=== PATIENT | female | born 1960 | race Caucasian/White ===

== ENCOUNTER 2019-03-21 10:36 | Observation (INO) ==
[2019-03-21] MEDS ORDERED: ASPIRIN PO ONE (10:44)
[2019-03-21] MEDS ORDERED: ASPIRIN PR ONE (10:44)
[2019-03-21 11:15] LABS: BASO# 0.05 X1000 (0.0-0.2); BASO% 0.8 % (0.0-0.8); EOS% 3.2 % (0.0-10.0); HEMATOCRIT 42.2 % (37.0-47.0); HEMOGLOBIN 12.7 g/dL (12.0-16.0); IMM GRAN# 0.03 X1000 (0.0-0.04); IMM GRAN% 0.5 % (0.0-0.5); LYMPH# 1.41 X1000 (1.2-3.4); LYMPH% 22.6 % (20.5-51.1); MCHC 30.1 g/dL (33-37); MCV 96.3 FL (81-99); MONO# 0.43 X1000 (0.11-0.59); MONO% 6.9 % (1.7-9.3); MPV 9.3 FL (7.4-10.4); NEUT# 4.11 X1000 (1.4-6.5); PLT 253 X1000 (130-400); RBC 4.38 XMIL (4.2-5.4); RDW 14.7 % (11.5-14.5); WBC 6.23 X1000 (4.8-10.8)
[2019-03-21 11:22] LABS: I-STAT BE 1 mmoll (-2-3); I-STAT GLUCOSE 124 mg/dL (70-105); I-STAT HEMOGLOBIN 13.6 g/dL (11.5-17.5); I-STAT K 3.8 mmoll (3.5-4.9); I-STAT SODIUM 142 mmoll (138-146); I-STAT TCO2 28 mmoll (23-27); I-STAT pH 7.341 (7.350-7.450)
[2019-03-21 11:31] LABS: INR 0.94
[2019-03-21 11:32] LABS: PTT 42.8 Seconds (22.3-41.8)
--- NOTE | 2019-03-21 11:32 | Diag Imaging Result Doc PS360 ---
EXAM: CHEST-2 VIEWS 03/21/2019 HISTORY: sob TECHNIQUE: PA and lateral chest COMMENT: There is no evidence of acute cardiac or pulmonary disease. The lungs are not as well-expanded as on 12/25/2010, otherwise there has been no significant change. IMPRESSION: Stable chest. Electronically signed by Telly Valencia 03/21/2019 11:29 AM
[2019-03-21 11:37] LABS: ALBUMIN 4.2 g/dL (3.5-5.0); CALCIUM 8.7 mg/dL (8.8-10.2); CREATININE 1.2 mg/dL (0.5-0.9); POTASSIUM 3.9 mmol/L (3.5-5.1); TOTAL BILIRUBIN 0.2 mg/dL (0.20-1.00); TOTAL PROTEIN 7.6 g/dL (6.3-8.3)
[2019-03-21 12:16] LABS: CK INDEX 2.3 (0.0-2.5); CK-MB 7.46 ng/mL (0.0-5.0)
[2019-03-21] MEDS ORDERED: ROCEPHIN 1 GM in NS 50 ML IV ONE (12:23)
[2019-03-21] MEDS ORDERED: SOLU-MEDROL IV ONE (12:23)
[2019-03-21] MEDS ORDERED: DUONEB (A & A) INH ONE (12:23)
--- NOTE | 2019-03-21 12:24 | EKG Report ---
Test Performed on : 03/21/2019 11:00:00 AM Test Reason : sob Blood Pressure : / mmHG Vent. Rate : 093 BPM Atrial Rate : 079 BPM P-R Int : 134 ms QRS Dur : 076 ms QT Int : 442 ms P-R-T Axes : 058 -47 188 degrees QTc Int : 549 ms Undetermined rhythm Left anterior fascicular block Nonspecific T wave abnormality Prolonged QT Abnormal ECG No previous ECGs available Unconfirmed Result
--- NOTE | 2019-03-21 13:13 | Diag Imaging Result Doc PS360 ---
EXAM: CT ANGIOGRM PULMONARY ARTERIES INDICATION: shortness of breath, elevated dimer TECHNIQUE: This exam was performed using automated exposure control, adjustment of mA or kV according to patient size, and/or use of iterative reconstruction technique. Thin section axial images and 3-D MIPS were obtained. COMPARISON: None. FINDINGS: There is no evidence of pulmonary embolism. There is patchy mild aortic atherosclerotic disease. There is no evidence of aortic aneurysm or dissection. There are calcified mediastinal and hilar lymph nodes indicating prior granulomatous disease. There are a few other borderline prominent nonspecific mediastinal lymph nodes. There are mild emphysematous changes at the lung apices. There are a few calcified granulomata in the right lower lobe. There are a few small groundglass opacities in the right middle lobe at the base, the anterior segment of the right upper lobe, and the right upper lobe near the apex that probably represent small foci of pneumonitis. There is mild focal scarring in the lingula. There is no pleural fluid collection and no pneumothorax. Limited views of the upper abdomen reveals low dense thickening of the adrenal glands likely representing hyperplasia or underlying adenomas. The upper abdomen is essentially unremarkable, otherwise. IMPRESSION: 1.Mild emphysema. 2.A few patches of groundglass opacity in the right upper lobe and right middle lobe suggesting nonspecific pneumonitis. 3.No evidence of pulmonary embolism. 4.Other incidental/nonacute findings detailed above. Electronically signed by Quinton Bunn 03/21/2019 1:10 PM
--- NOTE | 2019-03-21 14:34 | PROVIDER DOCUMENTATION ---
This chart was entered by Koki Hartley Scribe, acting as scribe for Nelda Reza MD. HPI-Respiratory General - General Chief Complaint: Shortness of Breath Stated Complaint: ABD NORMAL LABS Time Seen by Provider: 03/21/19 10:42 Source: patient Allergies/Adverse Reactions: Patient Allergies Allergy/AdvReac Type Severity Reaction Status Date / Time No Known Allergies Allergy Verified 03/21/19 11:18 Home Medications: Home Medication List Medication Instructions Recorded Confirmed Last Taken Type Albuterol Sulfate 1 vial IN TID PRN 03/21/19 03/21/19 Unknown History Amlodipine Besylate [Norvasc] 10 mg PO DAILY 03/21/19 03/21/19 Unknown History Citalopram Hydrobromide [Celexa] 40 mg PO DAILY 03/21/19 03/21/19 Unknown History Oxycodone HCl/Acetaminophen 1 tab PO TID PRN 03/21/19 03/21/19 Unknown History [Oxycodone-Acetaminophen 10-325] Pantoprazole Sodium 40 mg PO DAILY 03/21/19 03/21/19 Unknown History - History of Present Illness-Resp Nature of Presenting Problem: Pt is a 58 yowf with c/o of SOB that started 2 weeks ago. Pt stated that she can not lay down and breath. Pt states that she just started using oxygen at home at 2L daily. Pt is alert and nontoxic in appearance. Quality of Pain: reports: none Severity in ED: reports: mild Onset/Duration: reports: other (SOB started 2 weeks ago) Timing: reports: still present, getting worse Cough Quality/Degree: reports: no cough Current Respiratory Medication Therapy: Initiated see nurses note Modifying Factors: improves with: sitting upright. worse with: lying down Associated Symptoms: reports: shortness of breath Similar Symptoms Previously?: Yes Recently seen or treated by another doctor?: Yes (PCP) Review of Systems - Adult - REVIEW OF SYSTEMS - ADULT Constitutional: reports: no symptoms reported Eyes: reports: no symptoms reported Ears, Nose, Mouth & Throat: reports: no symptoms reported Cardiovascular: reports: no symptoms reported Respiratory: reports: dyspnea on exertion, shortness of breath Gastrointestinal: reports: no symptoms reported Genitourinary: reports: no symptoms reported Musculoskeletal: reports: no symptoms reported Integumentary: reports: no symptoms reported Neurological: reports: see HPI. denies: syncope Psychiatric: reports: no symptoms reported Endocrine: reports: no symptoms reported Hematologic/Lymphatic: reports: no symptoms reported Allergic/Immunologic: reports: no symptoms reported All Other Systems: Reviewed and Negative Past History - Adult - PAST MEDICAL HISTORY-ADULT Review of Records: reports: Old Records Reviewed, Nursing Assessment Review, Medications Reviewed, Social history reviewed & non-contributory. Major Childhood Illnesses: reports: denies history Cardiovascular: reports: HTN Respiratory: reports: COPD Gastrointestinal: reports: denies history Genitourinary: reports: denies history Musculoskeletal: reports: chronic pain, fibromyalgia Neurological: reports: denies history Psychiatric: reports: depression Endocrine/Immune: reports: denies history Other Conditions: reports: denies history - PRIOR SURGERIES/PROCEDURES Surgical/Procedure History: reports: cholecystectomy, BTL - IMMUNIZATION STATUS Childhood Immunizations: See Nurse Assessment Flu Vaccine: See Nurse Assessment - FAMILY HISTORY Family History: reviewed, not pertinent - SOCIAL HISTORY Smoking: cigarettes, greater than 1 pack/day Provider spent 3-5 mins advising pt. on dangers of tobacco.: Discussed manners to quit use, and f/u contacts for add'l counseling. Substance Use: denies Living Situation: family Physical Exam-General - PHYSICAL EXAM-ADULT Initial Vital Signs Reviewed: Yes (Temp 97.4, Resp 28, O2 83 RA) - CONSTITUTIONAL General Appearance: appears well, alert - EYES Eyes: PERRL/EOMI - HEAD, EARS, NOSE, MOUTH & THROAT HENMT: moist mucous membranes - NECK Neck: full range of motion - RESPIRATORY Respiratory: prolonged expiration, other (distant breath sounds. poor air movement). negative: rales, wheezing - CARDIOVASCULAR Cardiovascular: JVD - GASTROINTESTINAL (ABDOMEN) Abdominal Exam: non tender, soft - MUSCULOSKELETAL Back Exam: no CVA tenderness, no vertebral tenderness Extremity: non-tender, normal gait, pedal edema - SKIN Integumentary: normal color, normal turgor, warm/dry - NEUROLOGIC Neurologic: grossly normal, no motor/sensory deficits - PSYCHIATRIC Psych/Mental Status: normal mood/affect, normal thought content, normal thought process, oriented x 3 Progress - PLAN OF CARE/RESULTS Progress/Plan/Lab Results: Vital Signs - 8 hr 03/21/19 10:40 03/21/19 11:30 03/21/19 12:15 Temperature 97.4 F L Pulse Rate 87 79 81 Respiratory Rate 28 H 20 28 H Blood Pressure 165/91 129/78 146/81 O2 Sat by Pulse Oximetry 83 L 89 L 88 L 03/21/19 12:49 03/21/19 13:18 03/21/19 13:39 Temperature Pulse Rate 81 80 Respiratory Rate 24 18 Blood Pressure 146/81 O2 Sat by Pulse Oximetry 90 L 92 L 88 L Laboratory Results - last 24 hr 03/21/19 03/21/19 03/21/19 11:00 11:00 11:00 WBC 6.23 RBC 4.38 Hgb 12.7 Hct 42.2 MCV 96.3 MCH 29.0 MCHC 30.1 L RDW Std Deviation 14.7 H Plt Count 253 MPV 9.3 Immature Gran % (Auto) 0.5 Neut % (Auto) 66.0 Lymph % (Auto) 22.6 [place] % (Auto) 6.9 Eos % (Auto) 3.2 Baso % (Auto) 0.8 Immature Gran # (Auto) 0.03 Neut # (Auto) 4.11 Lymph # (Auto) 1.41 [place] # (Auto) 0.43 Eos # (Auto) 0.20 Baso # (Auto) 0.05 PT INR PTT (Actin FS) D-Dimer, Quantitative 0.89 H POC Blood Site POC pH POC pCO2 POC pO2 POC HCO3 POC Total CO2 POC Base Excess POC O2 Saturation POC Hemoglobin POC Hematocrit POC Sodium POC Potassium POC Glucose POC Ioniz Calcium O2 Delivery Device POC O2 Flow Rate POC FiO2 Sodium 145 Potassium 3.9 Chloride 103 Carbon Dioxide 26 Anion Gap 16 BUN 16 Creatinine 1.2 H Estimated GFR/1.73 m2 46 BUN/Creatinine Ratio 13 Glucose 107 H Calculated Osmolality 290 Calcium 8.7 L Total Bilirubin 0.20 AST 19 ALT 11 Alkaline Phosphatase 151 H Creatine Kinase 330 H Creatine Kinase Index 2.3 CK-MB (CK-2) 7.46 H Troponin T High Sens Unl-J-Qwibdlpjrsw Pept Total Protein 7.6 Albumin 4.2 Globulin 3.0 Albumin/Globulin Ratio 1.0 03/21/19 03/21/19 03/21/19 11:00 11:00 11:00 WBC RBC Hgb Hct MCV MCH MCHC RDW Std Deviation Plt Count MPV Immature Gran % (Auto) Neut % (Auto) Lymph % (Auto) [place] % (Auto) Eos % (Auto) Baso % (Auto) Immature Gran # (Auto) Neut # (Auto) Lymph # (Auto) [place] # (Auto) Eos # (Auto) Baso # (Auto) PT 13.0 INR 0.94 PTT (Actin FS) 42.8 H D-Dimer, Quantitative POC Blood Site POC pH POC pCO2 POC pO2 POC HCO3 POC Total CO2 POC Base Excess POC O2 Saturation POC Hemoglobin POC Hematocrit POC Sodium POC Potassium POC Glucose POC Ioniz Calcium O2 Delivery Device POC O2 Flow Rate POC FiO2 Sodium Potassium Chloride Carbon Dioxide Anion Gap BUN Creatinine Estimated GFR/1.73 m2 BUN/Creatinine Ratio Glucose Calculated Osmolality Calcium Total Bilirubin AST ALT Alkaline Phosphatase Creatine Kinase Creatine Kinase Index CK-MB (CK-2) Troponin T High Sens 11 Ysy-J-Syrtnwjoeeo Pept 227 H Total Protein Albumin Globulin Albumin/Globulin Ratio 03/21/19 03/21/19 11:10 11:17 WBC RBC Hgb Hct MCV MCH MCHC RDW Std Deviation Plt Count MPV Immature Gran % (Auto) Neut % (Auto) Lymph % (Auto) [place] % (Auto) Eos % (Auto) Baso % (Auto) Immature Gran # (Auto) Neut # (Auto) Lymph # (Auto) [place] # (Auto) Eos # (Auto) Baso # (Auto) PT INR PTT (Actin FS) D-Dimer, Quantitative POC Blood Site R RADIAL POC pH 7.341 L POC pCO2 49.5 H POC pO2 52.0 L POC HCO3 26.8 H POC Total CO2 28 H POC Base Excess 1 POC O2 Saturation 84 L POC Hemoglobin 13.6 POC Hematocrit 40 POC Sodium 142 POC Potassium 3.8 POC Glucose 124 H POC Ioniz Calcium 1.16 O2 Delivery Device CANNULA POC O2 Flow Rate 2.00 POC FiO2 28.0 Sodium Potassium Chloride Carbon Dioxide Anion Gap BUN Creatinine Estimated GFR/1.73 m2 BUN/Creatinine Ratio Glucose Calculated Osmolality Calcium Total Bilirubin AST ALT Alkaline Phosphatase Creatine Kinase Creatine Kinase Index CK-MB (CK-2) Troponin T High Sens Egd-J-Vphlmprzujr Pept 219 Total Protein Albumin Globulin Albumin/Globulin Ratio Orders Category Date Time Status Cardiac Monitoring DIRECTED Care 03/21/19 10:44 Active Oxygen Therapy- ED Nursing DIRECTED Care 03/21/19 10:44 Active Saline Loc NOW Care 03/21/19 10:44 Active CHEST-2 VIEWS [RAD] Stat Exams 03/21/19 10:44 Completed CTA [CT ANGIOGRM PULMONARY ARTERIES] [CT] Stat Exams 03/21/19 12:35 Completed BLOOD CULTURE [BLDCUL] Stat Lab 03/21/19 12:37 Ordered BNP [PRO B-NATRIURETIC PEPTIDE] Stat Lab 03/21/19 11:10 Completed CBC WITH ELECTRONIC DIFF [HEME] Stat Lab 03/21/19 11:00 Completed CK PROFILE [SP CHEM] Stat Lab 03/21/19 11:00 Completed COMPREHENSIVE METABOLIC PANEL [CHEM] Stat Lab 03/21/19 11:00 Completed D-DIMER [COAG] Stat Lab 03/21/19 11:00 Completed I-STAT 8 [RESP] Routine Lab 03/21/19 11:17 Completed PRO B-NATRIURETIC PEPTIDE Stat Lab 03/21/19 11:00 Completed PROTIME WITH INR [COAG] Stat Lab 03/21/19 11:00 Completed PTT [COAG] Stat Lab 03/21/19 11:00 Completed TROPONIN T HIGH SENSITIVITY Stat Lab 03/21/19 11:00 Completed Albuterol 2.5MG/Ipratrop 0.5MG [Duoneb (A & A)] Med 03/21/19 12:23 Discontinued 3 ml INH NOW ONE Aspirin Med 03/21/19 10:44 Discontinued 300 mg VT NOW ONE Aspirin Med 03/21/19 10:44 Discontinued 325 mg PO NOW ONE CefTRIAXONE [Rocephin] 1 gm Med 03/21/19 12:23 Discontinued 0.9% Sodium Chloride Inj [Ns] 50 ml IV NOW Methylprednisolone Sod Succ [Solu-Medrol] Med 03/21/19 12:23 Discontinued 125 mg IV NOW ONE Aerosol Treatments Routine Oth 03/21/19 12:24 Active Aerosol Treatments Stat Oth 03/21/19 12:24 Active CP/SOB/Palp >45 yrs of Age Stat Oth 03/21/19 10:44 Ordered EKG [EKG] Stat Ther 03/21/19 10:44 Draft Result Diagrams: 03/21/19 11:00 03/21/19 11:00 - REASSESSMENT Reassessment #1 Time Reassessed: 14:07 Status: unchanged Reassessment Comment: at bedside discussing admittance - EKG 1 Time of EKG reading by physician:: 11:06 EKG Read and Signed by:: Nelda Reza EKG Interpretation (*Must complete 3 of following elements*): Abnormal Rate: 93 (left anterior fascicular block) Rhythm: Undetermined rhythm Comments: Nonspecific T wave abnormality, Prolonged QT, abnomal ECG - XRAY 1 XRAY Study: Chest Impression: See EMR Report (EXAM: CHEST-2 VIEWS 03/21/2019 HISTORY: sob TECHNIQUE: PA and lateral chest COMMENT: There is no evidence of acute cardiac or pulmonary disease. The lungs are not as well-expanded as on 12/25/2010, otherwise there has been no significant change. IMPRESSION: Stable chest. Electronically signed by Telly Valencia 03/21/2019 11:29 AM 03/21/19 1129 Interpreting Physician: Telly Valencia MD Dictated Date/Time: 03/21/19 112 cc: Nelda Reza MD; Jerry Martinez MD) - CT/MRI 1 CT Study: other (pulmonary anteriogram) Impression: See EMR Report (EXAM: CT ANGIOGRM PULMONARY ARTERIES INDICATION: shortness of breath, elevated dimer TECHNIQUE: This exam was performed using automated exposure control, adjustment of mA or kV according to patient size, a nd/or use of iterative reconstruction technique. Thin section axial images and 3-D MIPS were obtained. COMPARISON: None. FINDINGS: There is no evidence of pulmonary embolism. There is patchy mild aortic atherosclerotic disease. There is no evidence of aortic aneurysm or dissection. There are calcified mediastinal and hilar lymph nodes indicating prior granulomatous disease. There are a few other borderline prominent nonspecific mediastinal lymph nodes. There are mild emphysematous changes at the lung apices. There are a few calcified granulomata in the right lower lobe. There are a few small groundglass opacities in the right middle lobe at the base, the anterior segment of the right upper lobe, and the right upper lobe near the apex that probably represent small foci of pneumonitis. There is mild focal scarring in the lingula. There is no pleural fluid collection and no pneumothorax. Limited views of the upper abdomen reveals low dense thickening of the adrenal glands likely representing hyperplasia or underlying adenomas. The upper abdomen is essentially unremarkable, otherwise. IMPRESSION: 1.Mild emphysema. 2.A few patches of groundglass opacity in the right upper lobe and right middle lobe suggesting nonspecific pneumonitis. 3.No evidence of pulmonary embolism. 4.Other incidental/nonacute findings detailed above. Electronically signed by Quinton Bunn 03/21/2019 1:10 PM 03/21/19 1310 Interpreting Physician: Quinton Bunn MD Dictated Date/Time: 03/21/19 1 258 cc: Nelda Reza MD; Jerry Martinez MD) - CONSULTS/PCP/HOSPITALIST Notification #1 *Consult/PCP/Hospitalist*: dr Martinez Time Discussed: 14:30 Consult Disposition: Admit Departure - Departure Date of Disposition Decision: 03/21/19 Time of Disposition Decision: 14:08 DIAGNOSIS: Pneumonitis COPD (chronic obstructive pulmonary disease) Qualifiers: COPD type: COPD with acute exacerbation Qualified Code(s): J44.1 - Chronic obstructive pulmonary disease with (acute) exacerbation Disposition: ADMITTED INPATIENT 09 Certified Medical Emergency: Emergent Condition: Good Referrals and Follow-Ups: Jerry Martinez MD [Primary Care Provider] - - Critical Care Note This patient required my direct & personal management of CC.: No Attestation - Physician/ RAUL Attestation Patient care was provided by Advanced Practice Provider:: No The physician spent face to face time with patient:: Yes Advanced Practice Provider documentation review:: Supervising physician onsite and consulted in the evaluation and care of this patient. The physician did have a face to face encounter with the patient. This chart was documented by the indicated scribe, (Koki Hartley, Christopher) and accurately reflects the services I performed and decisions made by me, Nelda Reza MD, as attested by the provider's signature.
[2019-03-21] MEDS ORDERED: DUONEB (A & A) INH PRN (15:29)
[2019-03-21] MEDS ORDERED: ZOFRAN IV PRN (15:30)
[2019-03-21] MEDS ORDERED: TYLENOL PO PRN (15:30)
[2019-03-21] MEDS ORDERED: LASIX IV ONE (15:52)
[2019-03-21] MEDS ORDERED: LASIX ONE (15:59)
[2019-03-21] MEDS ORDERED: LOVENOX SUBQ SCH (16:00)
[2019-03-21] MEDS: PERCOCET-10 PO PRN (16:03)
[2019-03-21] MEDS: DUONEB (A & A) INH SCH ×3 (16:10→23:59)
[2019-03-21] MEDS: SOLU-MEDROL IV SCH (18:07)
--- NOTE | 2019-03-21 18:41 | HISTORY AND PHYSICAL ---
ADDENDUM: Patient seen and examined by myself. Full note dictated and discussed with nurse practitioner. Patient presented to the hospital with increased shortness of breath and coughing. CT demonstrated pneumonitis. We are going to admit her to the hospital, place her on oxygen, nebulized treatment. cc: Jerry Martinez MD
--- NOTE | 2019-03-21 19:00 | HISTORY AND PHYSICAL ---
PRIMARY CARE PHYSICIAN: Dr. Jerry Martinez. CHIEF COMPLAINT: Shortness of breath, lower extremity edema, and generalized weakness. HISTORY OF PRESENT ILLNESS: This is a 58-year-old female with a history of COPD, hypertension, chronic pain on chronic narcotics, and fibromyalgia, who presents to the emergency room complaining of shortness of breath, productive cough, and increasing lower extremity edema. She states that in December she was out in the yard picking up pecans that were buried in some wet, moldy leaves. She stated the pecans had holes on many of them, and that they were molded. She states that about 2-3 days later she started to have some shortness of breath that increased over about 2 weeks. About that time she developed a productive cough. She states sputum has been yellow, green and foamy clear intermittently over the last 6-7 weeks. About 2 weeks ago she started having increasing lower extremity edema that did not resolve as usual during the night after elevating her feet, along with increasing shortness of breath, and over the last week, she has had orthopnea that has become 90-degree orthopnea over the last 2 days. She does use oxygen at 2 L at home at night. She did not use it during the day prior to coming to the emergency room. Because symptoms increased, she went to her primary care physician. She was found to have an 02 saturation of 83% and sent to the emergency room. On arrival to the emergency room, she had a saturation of 83% on room air. Reportedly, her nail beds were dusky to cyanotic, per respiratory therapy, on her arrival. PAST MEDICAL HISTORY: 1. COPD. 2. Hypertension. 3. Chronic pain, on chronic opiates. 4. Fibromyalgia. 5. Depression. PAST SURGICAL HISTORY: Cholecystectomy, tubal ligation. SOCIAL HISTORY: She smokes a pack to a pack and a half of cigarettes a day. She denies alcohol or illicit drug use. She is . ALLERGIES: No known drug allergies. HOME MEDICATIONS: A list will be obtained by the nursing staff, and once verified, will be restarted as appropriate. REVIEW OF SYSTEMS: Discussed with the patient, with pertinent positives as stated in the HPI. She denied any syncope or dizziness, any chest pain or palpitations, any night sweats, any nausea, vomiting, diarrhea, constipation, black or bloody vomitus or stools, any hematuria, dysuria, frequency or urgency. PHYSICAL EXAMINATION: GENERAL: This is a 58-year-old female who is standing up at the bedside, in no distress. VITAL SIGNS: Blood pressure is 148/65, heart rate 85, respirations 20, temperature 97.8 oral, with 02 saturations ranging from 92% to 95% on 3 L nasal cannula. EYES: Pupils equal, round, and reactive to light. Extraocular movements are intact. Sclerae are anicteric. HEENT: Head is normocephalic, atraumatic. Mucous membranes are moist. NECK: Supple. Trachea is midline. CARDIOVASCULAR: Regular rate and rhythm. S1 and S2 appreciated. She does have bilateral lower extremity edema that is from about just above her knees down. It is pitting. Calves are nontender with peripheral pulse palpable x4 extremities . PULMONARY: Breath sounds are distant throughout with expiratory wheezes and crackles. Chest rises and falls symmetrically with respiration. Chest wall is nontender to palpation. GASTROINTESTINAL: Abdomen is soft, nontender, nondistended with bowel sounds in all 4 quadrants. NEUROLOGIC: She is alert and oriented x3. SKIN: Warm and dry. LABORATORY DATA: WBCs 6.2, hemoglobin 12.7, hematocrit 42.2 and platelets 253. Sodium is 145, potassium 3.9, BUN 16, creatinine 1.2 with a glucose of 107. CK is 330 with CK-MB 7.46 and troponin-T of 11. ProBNP is 219. ABGs: pH of 7.34, pCO2 of 49, pO2 of 52, and bicarb of 26.8. This is on 2 L nasal cannula. INR is 0.94 with a PTT of 42.8 and a D-dimer of 0.89. Pulmonary arteriogram revealed mild emphysema, a few patches of ground-glass opacity in the right upper lobe and the right middle lobe suggesting nonspecific pneumonitis, no evidence of pulmonary embolism. ASSESSMENT: 1. Chronic obstructive pulmonary disease acute exacerbation. 2. Acute hypoxemic, hypercapnic respiratory failure. 3. Obstructive sleep apnea with home O2 at 2 liters for nighttime use. 4. Pneumonitis/bronchitis. 5. Elevated D-dimer with a CT angiogram/pulmonary negative for pulmonary embolus. 6. Chronic kidney disease with a baseline creatinine of 1.2. 7. Elevated CPK and CK-MB in a patient who complains of increasing weakness to extremities with upper greater than lower. 8. Hypertension. PLAN: 1. The patient will be admitted to the medical/surgical floor. She will be placed on telemetry. She will continue supplemental oxygen with close monitoring, with strict inputs and outputs with daily weights. Will start incentive spirometry and give her DuoNeb treatments every 4 hours or every 2 hours as needed, and steroids. Will attempt to get a sputum culture. Blood cultures are pending. Will check a CBC, a BMP and a total CK in the morning, and a PA and lateral chest in the morning. Will identify her home medications and continue these as appropriate. 2. Lasix 40 mg once a day. 3. Will obtain a CRP, a sedimentation rate, an LDH and a TSH in the setting of elevated CPK and CK- MB and complaints of recent generalized weakness, especially in her upper extremities. 4. Will get a bilateral lower extremity Doppler and an echocardiogram in the morning. 5. Further treatment pending hospital course. The patient was examined, and plan was discussed with Dr. Martinez. Dictated by RAVEN Purdy for Jerry Martinez MD cc: RAVEN Purdy MD
[2019-03-22] MEDS ORDERED: APRESOLINE IV PRN (00:24)
[2019-03-22] MEDS: PERCOCET-10 PO PRN ×3 (00:40→19:16)
[2019-03-22] MEDS: SOLU-MEDROL IV SCH ×4 (00:46→19:16)
[2019-03-22] MEDS: DUONEB (A & A) INH SCH ×6 (03:55→23:06)
[2019-03-22 06:13] LABS: EOS# 0.01 X1000 (0.0-0.7); EOS% 0.2 % (0.0-10.0); HEMATOCRIT 41.3 % (37.0-47.0); HEMOGLOBIN 12.4 g/dL (12.0-16.0); IMM GRAN# 0.08 X1000 (0.0-0.04); IMM GRAN% 1.6 % (0.0-0.5); LYMPH% 9.8 % (20.5-51.1); MCH 28.8 PG (27-31); MCV 95.8 FL (81-99); MONO# 0.04 X1000 (0.11-0.59); MONO% 0.8 % (1.7-9.3); MPV 9.3 FL (7.4-10.4); NEUT# 4.45 X1000 (1.4-6.5); NEUT% 87.6 % (42.2-75.2); PLT 284 X1000 (130-400); RBC 4.31 XMIL (4.2-5.4); RDW 14.4 % (11.5-14.5); WBC 5.08 X1000 (4.8-10.8)
[2019-03-22 06:24] LABS: CALCIUM 9.3 mg/dL (8.8-10.2); POTASSIUM 4.1 mmol/L (3.5-5.1)
--- NOTE | 2019-03-22 07:12 | Vascular Study Report ---
EXAM: Venous U/S Bilateral Legs - 03/21/2019 HISTORY: elevated d-dimer, dyspnea TECHNIQUE: Bilateral lower extremity Doppler venous ultrasound COMPARISON: 08/18/2018 FINDINGS: The deep veins of the bilateral lower extremities demonstrate flow, with compressibility and augmentation. There are no filling defects identified. IMPRESSION: No evidence of deep venous thrombosis in either lower extremity. Electronically signed by Gio Peres 03/22/2019 7:09 AM
[2019-03-22 07:42] LABS: LYMPHS 8 % (21-51); MONO 2 % (1-9); SEGS 90 % (42-75)
--- NOTE | 2019-03-22 07:51 | Diag Imaging Result Doc PS360 ---
EXAM: CHEST-2 VIEWS - 03/22/2019 HISTORY: hypoxemia TECHNIQUE: Chest two views COMPARISON: 03/21/2019 FINDINGS: Heart size appears within normal limits. There are apparent mild COPD changes. There is stable right lower lung granuloma from old granulomatous disease. There is no consolidation, pleural effusion, or pneumothorax identified. There are thoracic spondylosis and exaggerated kyphosis noted similar to prior. IMPRESSION: Apparent mild COPD changes. No discrete pneumonia. Electronically signed by Gio Peres 03/22/2019 7:48 AM
[2019-03-22] MEDS: CELEXA PO SCH (09:42)
[2019-03-22] MEDS: NORVASC PO SCH (09:42)
[2019-03-22] MEDS: PROTONIX PO SCH (09:42)
--- NOTE | 2019-03-22 18:47 | ECHO REPORT ---
ORDER DATE: 03/22/2019 INDICATION: Dyspnea, hypoxemia. M-MODE MEASUREMENTS: Left ventricle end diastole: 5.3. Left ventricle end systole: 3.2. Posterior wall: 1.0. Interventricular septum: 1.9. Left atrium: 3.6. Aortic diameter: 3.2. SUMMARY OF 2-DIMENSIONAL IMAGIN. Left ventricular function is normal. Ejection fraction is 75%. There is no wall motion abnormality. 2. The aortic valve looks normal. Color flow mapping unremarkable. 3. The pulmonic valve looks normal. Color flow mapping unremarkable. 4. The tricuspid valve shows a mild degree of regurgitation. The inferior vena cava is not dilated. Pulmonary pressure is estimated at 32 mmHg. 5. The mitral valve looks normal. Color flow mapping unremarkable. 6. Pulse wave Doppler of mitral inflow shows reversal of the E/A ratio. The ratio if 0.7. 7. Tissue Doppler of septal and lateral mitral annulus averages 8 cm. There is no diastolic dysfunction. 8. Pulmonary venous flow is normal. 9. The right atrium is not dilated. The left atrium appears to be mildly enlarged. 10.The right ventricle is normal. 11.There is no pericardial effusion, no mass, and no thrombus. 12.The aortic valve opens normally. Color flow mapping unremarkable. Clinical correlation recommended. cc: MD Hilda White CRNP MTDD
--- NOTE | 2019-03-23 00:34 | PROGRESS NOTE ---
DATE: 03/22/2019 SUBJECTIVE: Patient notes that she is feeling okay, breathing okay, breathing a little bit better. Notes that her upper extremity weakness also is better. PHYSICAL EXAMINATION: Temperature 98 degrees, pulse 76, respiratory rate 18, BP 181/76. General: Patient is awake, alert. She is in minimal respiratory distress. HEENT: Normocephalic. Neck: Supple. Cardiovascular: Regular rhythm and rate. Chest: Clear. Abdomen: Soft. Extremities: Moves all extremities. Neurologic: No changes. ASSESSMENT: 1. Chronic obstructive pulmonary disease with exacerbation. 2. Acute hypoxic respiratory failure. 3. Acute hypercapnic respiratory failure. 4. Obstructive sleep apnea with home oxygen. 5. Elevated D-dimer. 6. Elevated sedimentation rate. 7. Elevated CPK. PLAN: We will continue patient in the hospital. Continue to follow. Continue Lasix and breathing treatments, oxygen. Hopefully, she will improve and can be discharged home soon. cc: Jerry Martinez MD
[2019-03-23] MEDS: SOLU-MEDROL IV SCH ×2 (01:45→06:36)
[2019-03-23] MEDS: DUONEB (A & A) INH SCH ×3 (03:19→11:11)
[2019-03-23 06:37] LABS: BASO# 0.01 X1000 (0.0-0.2); BASO% 0.1 % (0.0-0.8); HEMATOCRIT 38.3 % (37.0-47.0); HEMOGLOBIN 11.4 g/dL (12.0-16.0); IMM GRAN# 0.07 X1000 (0.0-0.04); IMM GRAN% 0.9 % (0.0-0.5); LYMPH# 0.67 X1000 (1.2-3.4); LYMPH% 8.4 % (20.5-51.1); MCH 28.3 PG (27-31); MCHC 29.8 g/dL (33-37); MONO# 0.18 X1000 (0.11-0.59); MONO% 2.2 % (1.7-9.3); MPV 9.3 FL (7.4-10.4); NEUT# 7.08 X1000 (1.4-6.5); NEUT% 88.4 % (42.2-75.2); PLT 288 X1000 (130-400); RBC 4.03 XMIL (4.2-5.4); RDW 14.5 % (11.5-14.5); WBC 8.01 X1000 (4.8-10.8)
[2019-03-23 07:03] LABS: BANDS 2 % (0-1); LYMPHS 10 % (21-51); MONO 2 % (1-9); SEGS 86 % (42-75)
[2019-03-23 07:04] LABS: HYPOCHROM OCCASIONAL; POLYCHROM OCCASIONAL
[2019-03-23 07:39] VITALS: BP 161/82
[2019-03-23] MEDS ORDERED: DIFLUCAN PO SCH (09:00)
[2019-03-23] MEDS ORDERED: PRINIVIL PO SCH (09:00)
[2019-03-23] MEDS: CELEXA PO SCH (09:20)
[2019-03-23] MEDS: PROTONIX PO SCH (09:20)
[2019-03-23] MEDS: NORVASC PO SCH (09:20)
[2019-03-23] MEDS: PERCOCET-10 PO PRN (09:26)
[2019-03-23] MEDS ORDERED: SOLU-MEDROL IV SCH (14:30)
--- NOTE | 2019-03-24 04:58 | DISCHARGE SUMMARY ---
ADMISSION DATE: 03/21/2019 DISCHARGE DATE: 03/23/2019 Patient seen and examined by myself. Full note dictated and discussed with nurse practitioner. Patient presented to the hospital with shortness of breath. Was noted to have a mild COPD exacerbation. Sedimentation rate was elevated. Was placed on steroids. She had a great improvement. On discharge, she is awake, alert. She is in no distress and is asking to go home. cc: Jerry Martinez MD
--- NOTE | 2019-03-24 18:40 | DISCHARGE SUMMARY ---
ADMISSION DATE: 03/21/2019 DISCHARGE DATE: 03/23/2019 DIAGNOSES: 1. Chronic obstructive pulmonary disease acute exacerbation. Resolved. 2. Acute hypoxemic hypercapnic respiratory failure. Resolved. 3. Obstructive sleep apnea with home oxygen at 2 liters. 4. Elevated D-dimer with a negative bilateral venous Doppler and negative CTA pulmonary. 5. Elevated sedimentation and elevated CPK. DIAGNOSTICS: 1. Chest x-ray revealed no evidence of acute cardiac or pulmonary disease. Lungs were not as well expanded as on December 2010. Otherwise, there is no significant change. 2. Bilateral lower extremity Doppler reveals no evidence of deep vein thrombosis in either extremity. 3. CTA pulmonary, mild emphysema, a few patches of ground-glass opacity in the right upper lobe and right middle lobe suggesting nonspecific pneumonitis. No evidence of pulmonary embolism. 4. Echocardiogram revealed EF of 75%, with no wall motion abnormality. No pericardial effusion. No mass and no thrombus. HOSPITAL COURSE: Ms. Chaves presented to the emergency room complaining of 2 weeks of shortness of breath that started after she was picking pecans up from molded leaves. She stated the shortness of breath had increased. During this time, she developed a productive cough and lower extremity edema prompting her to come to the ER. She was found to be in acute hypoxemic hypercapnic respiratory failure, having a pCO2 of 49 and PO2 of 52. She was given supplemental oxygen. For her COPD exacerbation, she was treated with DuoNeb q.4 with q.2 p.r.n. and steroids to taper. Thankfully, this has resolved. Blood cultures have returned with no growth. She does have a history of chronic kidney disease. Creatinine at baseline is 1.2. She has stayed 1.1 and 1.2 throughout the hospitalization. She said that she has had some extremity weakness with upper extremity more than lower. Seems like it has been worse in the last few months. She did have elevated CRP and sedimentation rate. Her CPK was 330. Serial CPKs were obtained, is down to 152 today. She did state on discharge that she felt that she had more strength in her extremities. Connective tissue panel and anti-Ailyn, as well as LDH were ordered, and these can be followed up with Dr. Martinez, her primary care physician, on followup appointment. DISCHARGE VITAL SIGNS: Blood pressure is 160/80 with a heart rate of 90. Respirations are 20. Temperature is 98.4 degrees oral. O2 saturations are 91 to 93 percent on 3 L nasal cannula. DISCHARGE PHYSICAL EXAMINATION: Cardiovascular: Regular rate and rhythm. S1 and S2 appreciated. Calves are nontender bilaterally. Peripheral pulses are palpable. Pulmonary: Breath sounds are clear. No increased work of breathing noted. Chest rises and falls symmetric to respiration. Chest wall is nontender to palpation. Gastrointestinal: Abdomen is soft, nontender, nondistended with bowel sounds in all 4 quadrants. Neurologic: Alert and oriented x3. Skin: Warm and dry. DISCHARGE MEDICATIONS: 1. Pantoprazole 40 mg p.o. daily. 2. Dundee 10 one p.o. t.i.d. 3. Steroid Dosepak take as directed. 4. Lisinopril 10 mg p.o. daily. 5. Diflucan 100 mg p.o. daily. 6. Celexa 40 mg p.o. daily. 7. Norvasc 10 mg p.o. daily. 8. Albuterol nebulizer t.i.d. as needed FOLLOWUP: Dr. Jerry Martinez. She has been instructed to call to schedule an appointment in the next 2 to 3 weeks, sooner if needed. She has been instructed to return to the ER or call to be seen sooner for temperature greater than 101, any syncope, dizziness, chest pain, palpitations, increasing shortness of breath, any nausea, vomiting, diarrhea, constipation, black or bloody vomitus or stools, any hematuria, dysuria, frequency, urgency, or for any questions or concerns that she may have. DISPOSITION: She is being discharged home in stable condition with family members. TIME: Greater than 30 minute discharge. Dictated by RAVEN Purdy for Jerry Martinez MD cc: RAVEN Purdy MD
== END 2019-03-23 12:00 | disposition home or self-care (01) ==
LOC: P.ED 10:36 → INTOOBSV 10:37 → P.MEDSURG 10:37
PROVIDERS: ATTEND Family Medicine